=== PATIENT | male | born 1935 | race Two or more races ===

== ENCOUNTER 2017-08-24 16:51 | Emergency (ER) | payer OTHER ==
[~2017-08-24] VITALS: Ht 162.6 cm; Wt 59.0 kg
[2017-08-24] MEDS ORDERED: IBUPROFEN600 MG ORAL (18:52)
[2017-08-24 18:54] VITALS: BP 119/54
--- NOTE | 2017-08-24 23:38 | Emergency Room Report ---
History of Present Illness General Chief Complaint: Lower Extremity Injury Source: Patient Present Illness HPI The patient is an 82-year-old male presenting for right-sided hip pain which began yesterday after falling. He states that he was walking down stairs, tripped, and fell onto the right hip. He denies hitting his head or loss of consciousness. Pain is an 8/10 dull ache and does not radiate. Worse with touch and movement. He denies any numbness or tingling. He denies any other symptoms Allergies: Coded Allergies: PENICILLINS (Verified Allergy, Unknown, 08/24/17) Patient History Past Medical History: see triage record Pertinent Family History: none Reviewed Nursing Documentation: PMH: Agreed, PSxH: Agreed Nursing Documentation-PMH Hx Diabetes: Yes - "Diet controlled" Review of Systems All Other Systems: negative except mentioned in HPI Physical Exam Vital Signs Date Time Temp Pulse Resp B/P (MAP) Pulse Ox O2 Delivery O2 Flow Rate FiO2 08/24/17 16:55 97.9 60 18 119/54 96 Room Air Sp02 EP Interpretation: reviewed, normal General Appearance: no apparent distress, alert, GCS 15, non-toxic Head: normocephalic, atraumatic Eyes: bilateral eye normal inspection, bilateral eye PERRL ENT: hearing grossly normal, normal pharynx, no angioedema, normal voice Neck: full range of motion, supple/symm/no masses Respiratory: chest non-tender, lungs clear, normal breath sounds, speaking full sentences Musculoskeletal: normal inspection, gait/station normal, normal range of motion , tender - R anterior and lateral pelvis Neurologic: alert, oriented x3, responsive, motor strength/tone normal, sensory intact, speech normal Psychiatric: judgement/insight normal, memory normal, mood/affect normal, no suicidal/homicidal ideation Skin: normal color, no rash, warm/dry, well hydrated Lymphatic: no adenopathy Medical Decision Making PA Attestation Dr. Tomlin is my supervising physician. Patient management was discussed with my supervising physician Diagnostic Impression: Primary Impression: Contusion, hip Qualified Codes: S70.00XA - Contusion of unspecified hip, initial encounter ER Course The patient is an 82-year-old male presenting for right-sided hip pain Ddx considered include but not limited to sprain/strain, fracture, contusion Physical exam: No apparent distress No tender to palpation over the lumbar or sacral spine. No step-offs. There is tenderness to palpation over the right lateral and anterior pelvis. Normal gait. Full active range of motion No shortening or rotation. CT scan shows no acute findings The patient will be discharged home with prescription for pain medication and needs to follow up with primary doctor. ER precautions given CT/MRI/US Diagnostic Results CT/MRI/US Diagnostic Results : Imaging Test Ordered: CT pelvis Impression unremarkable Last Vital Signs Date Time Temp Pulse Resp B/P (MAP) Pulse Ox O2 Delivery O2 Flow Rate FiO2 08/24/17 18:54 97.9 78 18 119/54 96 Room Air Status: improved Disposition: HOME, SELF-CARE Condition: Improved Scripts Ibuprofen* (MOTRIN*) 600 Mg Tablet 600 MG ORAL Q8H Y for For Pain, #30 TAB 0 Refills Prov: LUBNA MURRAY 08/24/17 Patient Instructions: Hip Pain Additional Instructions: I discussed my findings with the patient. All questions and concerns have been answered. Treatment and medication compliance have been addressed. I advised the patient that they need to follow up with PMD in 3-5 days. Return to ED if pain remains or worsens, numbness or tingling occurs, new rash is noticed, fever is noticed, or if needed for any reason. Patient verbalized understanding of discharge instructions. LUBNA MURRAY Aug 24, 2017 23:38
--- NOTE | 2017-08-25 08:32 | Diagnostic Imaging Report ---
Indication: Right-sided pelvic pain Technique: Noncontrast spiral acquisitions obtained through the pelvis. Multiplanar reconstructions generated. Total dose length product 318 mGycm. CTDIvol(s) 10 mGy. 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 There are degenerative changes of the bilateral sacroiliac joints and lower lumbar spine. No acute fractures. No dislocations. There are degenerative proliferative changes of both hip joints. No evidence of soft tissue contusion Soft tissues demonstrate colonic diverticulosis. No evidence of diverticulitis. Mildly distended bladder Impression: No acute bony trauma Diverticulosis. This agrees with the preliminary interpretation provided overnight by [facility] teleradiology service. The CT scanner at [facility] is accredited by the [employer] and the scans are performed using protocols designed to limit radiation exposure to as low as reasonably achievable to attain images of sufficient resolution adequate for diagnostic evaluation.
== END 2017-08-24 19:30 | disposition home or self-care (01) ==
LOC: EMR 17:30
DX: S70.01XA Contusion of right hip, initial encounter (principal); W10.9XXA Fall (on) (from) unspecified stairs and steps, initial encounter; Y92.59 Other trade areas as the place of occurrence of the external cause; Y99.0 Civilian activity done for income or pay; Z88.0 Allergy status to penicillin; E11.9 Type 2 diabetes mellitus without complications; K57.30 Diverticulosis of large intestine without perforation or abscess without bleeding
CPT/HCPCS: 72192; 99284

== ENCOUNTER 2018-04-27 12:26 | Emergency (ER) | payer OTHER ==
[~2018-04-27] VITALS: Ht 162.6 cm; Wt 59.0 kg
[~2018-04-27 12:26] MED LIST: ASPIRIN325 MG ORAL; CARVEDILOL3.125 MG ORAL; IBUPROFEN600 MG ORAL; LIPITOR80 MG ORAL; TYLENOL 8 HOUR650 M1 ORAL
[2018-04-27] MEDS ORDERED: Tetracaine 0.5% Opth 4ml Soln LEFT EYE ONE (12:45)
[2018-04-27] MEDS ORDERED: Fluorescein Strips LEFT EYE ONE (12:45)
--- NOTE | 2018-04-27 14:50 | Emergency Room Report ---
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 He had pain at that time and some blurred vision. He washed the eye immediately. He went home without being evaluated. This morning he woke up with some blurred vision on occasion. Also there is a slight amount of crusting of the eye. He states that there is some pain in the eye also which is rated at 6-8/10 and fairly constant but better when the eyes closed. He denies any pain or chemical exposure of R eye. Patient denies any previous eye problems. His tetanus is up-to-date. There is no headache, nausea, vomiting. There are no other skin rashes. The patient denies any fevers. No chest pain, cough or palpitations. Patient has borderline diabetes that's diet controlled. He denies any polyuria or polydipsia. Allergies: Coded Allergies: PENICILLINS (Verified Allergy, Unknown, 08/24/17) Patient History Past Medical History: see triage record Social History: Denies: smoking, alcohol use Social History Narrative Works at [employer] 12 years. Born in [facility] Reviewed Nursing Documentation: PMH: Agreed; PSxH: Agreed Nursing Documentation-PMH Past Medical History: No History, Except For Hx Cardiac Problems: Yes - SD 10 yrs ago Hx Diabetes: Yes Review of Systems All Other Systems: negative except mentioned in HPI Physical Exam Vital Signs Date Time Temp Pulse Resp B/P (MAP) Pulse Ox O2 Delivery O2 Flow Rate FiO2 04/27/18 12:29 97.9 51 18 151/61 99 Room Air 97.9 General Appearance: well appearing, no apparent distress Head: normocephalic, atraumatic Eyes: left eye lid inflammation, left eye other - no corneal flouriscene uptake ; bilateral eye normal inspection, bilateral eye PERRL, bilateral eye EOMI, bilateral eye visual acuity - L 20/50, R 20/50, Garrick 20/50 ENT: hearing grossly normal, normal voice Neck: full range of motion, supple Respiratory: no respiratory distress, speaking full sentences Musculoskeletal: no calf tenderness Neurologic: alert, oriented x3, artists' booking representative III-XII nml as tested, normal gait, grossly normal Psychiatric: mood/affect normal Skin: no rash Medical Decision Making Diagnostic Impression: Primary Impression: Chemical exposure of eye ER Course Patient presents with a decrease her exposure to left eye last night. Differential includes corneal chemical burn, local conjunctivitis, right eye injury left eye amongst others. We will check the pH of the conjunctiva. If it 's basic we need to irrigate the eye until it's pH of 7. After that at slit lamp exam will be performed. MSDS reviewed and Poison Control also consulted. PH initially 9. Eyes irrigated with 1 L. After irrigating with 1 L the pH is 8. This irrigated with 1 more liter. After the second liter pH of the eye is 7. The patient feels better at this time. Slit-lamp exam was done. There is no floor seen uptake of the cornea. Patient's states his vision is at baseline. Discussed with patient need for follow-up tomorrow. Also for further care. Patient stable for outpatient observation and treatment. Last Vital Signs Date Time Temp Pulse Resp B/P (MAP) Pulse Ox O2 Delivery O2 Flow Rate FiO2 04/27/18 15:05 97.9 18 151/61 99 Room Air 97.9 04/27/18 12:29 51 Status: improved Disposition: HOME, SELF-CARE Condition: Improved Scripts Ibuprofen* (MOTRIN*) 600 Mg Tablet 600 MG ORAL Q6H PRN for For Pain, #12 TAB Prov: Gino Rodríguez M.D. 04/27/18 Sulfacetamide Sodium (BLEPH-10) 5 Ml Drops 5 ML OP Q6HR, #10 ML Prov: Gino Rodríguez M.D. 04/27/18 Referrals: NOT CHOSEN [facility]ADOR/,REFERRING (PCP) Gino Rodríguez M.D. Apr 27, 2018 14:50
[2018-04-27] MEDS ORDERED: IBUPROFEN600 MG ORAL (14:57)
[2018-04-27] MEDS ORDERED: BLEPH-105 ML OP (14:57)
[2018-04-27 15:05] VITALS: BP 151/61
== END 2018-04-27 15:06 | disposition home or self-care (01) ==
LOC: MERGE 13:04 → EMR 13:04
DX: H57.12 Ocular pain, left eye (principal); Z77.098 Contact with and (suspected) exposure to other hazardous, chiefly nonmedicinal, chemicals; H53.8 Other visual disturbances; E11.9 Type 2 diabetes mellitus without complications; I25.2 Old myocardial infarction; Z88.0 Allergy status to penicillin
CPT/HCPCS: 99284